=== PATIENT | female | born 1995 | race Two or more races ===

== ENCOUNTER 2016-04-27 08:43 | Day surgery (SDC) | payer OTHER ==
[2016-04-27] MEDS ORDERED: MIDAZOLAM 2 MG/2 ML INJ ONE (10:15)
[2016-04-27] MEDS ORDERED: FENTANYL CITRATE INJ/PF 250 MCG/5 ML AMPULE ONE (10:15)
[2016-04-27] MEDS ORDERED: SUCCINYLCHOLINE CHLORIDE INJ 200 MG/10 ML VIAL ONE (10:16)
[2016-04-27] MEDS ORDERED: DEXAMETHASONE SOD PHOS INJ 10 MG/1 ML VIAL ONE (10:16)
[2016-04-27] MEDS ORDERED: PROPOFOL INJ 200 MG/20 ML VIAL IV ONE (10:16)
[2016-04-27] MEDS ORDERED: ONDANSETRON HCL INJ/PF 4 MG/2 ML SDV ONE (10:16)
[2016-04-27] MEDS ORDERED: BUPIVACAINE HCL 0.5%-EPI 1:200000 INJ/PF 30 ML VIAL ONE (10:24)
[2016-04-27] MEDS ORDERED: OXYCODONE-ACETAMINOPHEN 5-325 MG TABLET ONE (11:50)
--- NOTE | 2016-04-29 12:17 | [facility]ARE OPERATIVE REPORT E ---
[facility] Operative Report NAME: MODESTA CHEUNG AGE: 21Y DATE OF SURGERY: 04/27/2016 ROOM: PREOPERATIVE DIAGNOSIS: CHRONIC TONSILLITIS. POSTOPERATIVE DIAGNOSIS: CHRONIC TONSILLITIS. OPERATION: Bilateral tonsillectomy. SURGEON: LAITH CORDERO D.O. ANESTHESIA: General endotracheal tube. ANESTHESIA STAFF: CHEYANNE Villar . ESTIMATED BLOOD LOSS: 10 mL. COMPLICATIONS: None. DRAINS: None. COUNTS: Sponge count verified. MATERIAL FORWARDED SPECIMEN: Left and right tonsillar tissue. FLUIDS: . FINDINGS: The tonsils were noted to be 2+ in size, were cryptic and were with tonsillar debris present bilateral. The soft palatal tissues were redundant in nature and the uvula was unremarkable in appearance. 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 The patient had been referred for a chief complaint of a longstanding history of chronic tonsillitis symptoms over the years with history consistent with keratosis pharyngis. The patient has desired to undergo tonsil surgery to move beyond her chronic tonsil problems. After an extensive discussion with the patient, recommendation and plan was made for tonsil surgery. The procedure and all of its risks and complications were all discussed in detail with the patient. She voiced an understanding of the described surgical plan, agreed to proceed, and consent was obtained. PROCEDURE: The patient was taken to the main operating room and placed on the operating room table in the supine position. Appropriate monitors were placed. Using mask and IV access, general anesthesia was induced. The patient was next transorally intubated without difficulty. The table was then rotated 90 degrees and the patient was positioned and prepped for tonsillar surgery. The patient's lips, teeth, tongue, and gums were inspected and noted to be without defect. The patient had a mouth gag inserted. It was opened and she was placed into suspension. At this point, a soft catheter passed through the nose that was used to suspend the soft palate. Marcaine with epinephrine was injected around the tonsillar and soft palate areas. At this point, electrocautery was used to dissect and remove the tonsils without difficulty. Suction electrocautery was used to provide adequate hemostasis. Normal saline irrigation was performed and suctioned. There was adequate hemostasis noted. The soft suction catheter was released and removed from the patient's nose. The mouth gag was next released from suspension and closed. It was then reopened and there was again adequate hemostasis noted. It was then closed and removed from the patient's mouth. There was no damage to the lips, teeth, tongue, and gums noted. The patient was then returned to the anesthesia staff and was allowed to emerge from general anesthesia. The patient was extubated in the main operating room and was then transported to the Postanesthesia Recovery Unit in stable condition. There were no complications. DICTATING PHYSICIAN: LAITH CORDERO D.O. [id number] PHY#: [id number] ID: [id number] JOB#: [id number] ACCT: [id number] cc:LAITH CORDERO D.O. >
== END 2016-04-27 12:30 | disposition home or self-care (01) ==
LOC: SC 08:43
PROVIDERS: ATTEND Otolaryngology
PROC: 0CTPXZZ Resection of Tonsils, External Approach (ICD-10-PCS; principal; 2016-04-27 09:45)
DX: J35.1 Hypertrophy of tonsils (principal)
CPT/HCPCS: 88304 ×2; 42826; J2250; J3490; J3010; J0330; J2405; J2704; J1100; 170